=== PATIENT | female | born 1970 | race African-American/Black ===

== ENCOUNTER 2018-08-05 19:10 | Emergency (ER) | payer OTHER ==
[~2018-08-05] VITALS: Ht 165.1 cm; Wt 53.2 kg
[~2018-08-05 19:10] MED LIST: COMBIH IH; QUET400T PO; SERT50TA12 PO
[2018-08-05] MEDS: ACETAMINOPHEN 500 MG TABLET PO ONE (20:50)
[2018-08-05 21:00] LABS: APPEARANCE,URINE CLOUDY (CLEAR); BILIRUBIN,URINE NEGATIVE (NEGATIVE); GLUCOSE, URINE (UA) NEGATIVE (NEGATIVE); KETONES,URINE NEGATIVE (NEGATIVE); LEUKOCYTE ESTERASE ,URINE SMALL (NEGATIVE); NITRATE,URINE NEGATIVE (NEGATIVE); OCCULT BLOOD,URINE SMALL (NEGATIVE); PH,URINE 5.5 (5.0-8.0); PROTEIN,URINE NEGATIVE (NEGATIVE)
[2018-08-05 21:02] LABS: AMPHET/METH SCREEN,URINE NEGATIVE (NEGATIVE); BARBITURATE SCREEN, URINE NEGATIVE (NEGATIVE); BENZODIAZEPINES SCREEN,URINE NEGATIVE (NEGATIVE); CANNABINOID SCREEN,URINE POSITIVE (NEGATIVE); COCAINE SCREEN,URINE NEGATIVE (NEGATIVE); METHADONE SCREEN, URINE NEGATIVE (NEGATIVE); OPIATE SCREEN,URINE NEGATIVE (NEGATIVE)
[2018-08-05 21:03] LABS: PHENCYCLIDINE SCREEN,URINE NEGATIVE (NEGATIVE)
[2018-08-05 21:08] LABS: BACTERIA,URINE Few /HPF (None Seen); SQUAMOUS EPITHELIAL CELL,UR Few /LPF (None Seen)
[2018-08-05] MEDS: NITROFURANTOIN/NITROFURAN MAC 100 MG CAPSULE [MACROBID] PO ONE (21:24)
[2018-08-05] MEDS: ONDANSETRON HCL 4 MG TABLET PO ONE (23:11)
[2018-08-05 23:21] VITALS: BP 141/98
== END 2018-08-05 23:26 | disposition home or self-care (01) ==
LOC: EMS 19:11
DX: I10 Essential (primary) hypertension (principal); R51 Headache; N39.0 Urinary tract infection, site not specified; F31.9 Bipolar disorder, unspecified; J44.9 Chronic obstructive pulmonary disease, unspecified; F17.210 Nicotine dependence, cigarettes, uncomplicated; Z88.1 Allergy status to other antibiotic agents; Z88.5 Allergy status to narcotic agent; Z79.899 Other long term (current) drug therapy
CPT/HCPCS: 80307; 81001; 82962; 87077; 87086; 87186; 99284; 99406; Q0162

== ENCOUNTER 2023-05-26 08:57 | Emergency (ER) | payer MEDICAID, OTHER ==
[~2023-05-26] VITALS: Ht 165.1 cm; Wt 50.0 kg
[~2023-05-26 08:57] MED LIST changes: -SERT50TA12 PO
[2023-05-26 09:06] VITALS: BP 124/82; PULSE 95; RESP 18; TEMP 98.1
[2023-05-26] MEDS ORDERED: TraMADol HCL 50 MG TABLET PO ONE (09:15)
[2023-05-26] MEDS ORDERED: PENI500T2 PO (09:21)
[2023-05-26] MEDS ORDERED: IBUP-1492 PO (09:21)
== END 2023-05-26 10:00 | disposition home or self-care (01) ==
LOC: EMS 09:02
DX: K04.7 Periapical abscess without sinus (principal); F41.9 Anxiety disorder, unspecified; J45.909 Unspecified asthma, uncomplicated; F31.9 Bipolar disorder, unspecified; J44.9 Chronic obstructive pulmonary disease, unspecified; M19.90 Unspecified osteoarthritis, unspecified site; F17.210 Nicotine dependence, cigarettes, uncomplicated; Z90.49 Acquired absence of other specified parts of digestive tract; Z98.890 Other specified postprocedural states; Z88.1 Allergy status to other antibiotic agents; Z88.6 Allergy status to analgesic agent
CPT/HCPCS: 99283

== ENCOUNTER 2023-11-01 19:27 | Emergency (ER) | payer MEDICAID ==
[~2023-11-01] VITALS: Ht 165.1 cm; Wt 57.7 kg
[~2023-11-01 19:27] MED LIST changes: +IBUP-1492 PO; +PENI500T2 PO; -QUET400T PO
[2023-11-01] MEDS ORDERED: FLUT1DIS6 IH (19:32)
[2023-11-01] MEDS ORDERED: QUET200T30 PO (19:32)
[2023-11-01] MEDS ORDERED: NICO-703 TP (19:32)
[2023-11-01] MEDS ORDERED: ALBU18HF12 IH (19:32)
[2023-11-01 19:33] VITALS: BP 128/85; PULSE 104; RESP 22; TEMP 98.2
== END 2023-11-01 20:54 | disposition left against medical advice (07) ==
LOC: EMS 19:27
DX: R06.2 Wheezing (principal); R06.02 Shortness of breath; R05.9 Cough, unspecified; Z53.21 Procedure and treatment not carried out due to patient leaving prior to being seen by health care provider
CPT/HCPCS: 99281; Z7502